=== PATIENT | female | born 1945 | race Two or more races ===

== ENCOUNTER → 2021-04-12 08:00 | Outpatient (CLI) | payer OTHER ==
[~2021-04-12] VITALS: Ht 144.8 cm; Wt 79.4 kg
[~2021-04-12 08:00] MED LIST: AMBIEN10 MG PO; ARICEPT10 MG PO; ARNUITY ELLIP200 MCG IH; ATENOLOL25 MG PO; AVAPRO300 MG PO; CARDURA8 MG PO; CIPRO750 MG PO; CLONAZEPAM1 MG PO; Colace 100MG PO; DOCUSATE SODIU100 MG PO; GABAPENTIN400 MG PO; GLUCOPHAGE XR500 MG PO; LANTUS SOLOSTAR3 ML SQ; LIPIT PO; MIRAPEX0.125 MG PO; NEURONTIN PO; PERCOCET 5/321 UDTAB PO; PERCOCET 5/3251 TAB PO; SYNTH PO; ZOLOFT50 MG PO
== END | disposition home or self-care (01) ==
LOC: LAB 08:00 → SURH 04-17 10:45 → EDSTATUS 04-17 10:45 → SURH 04-17 13:47
PROVIDERS: ATTEND Orthopaedic Surgery Orthopaedic Surgery of the Spine
DX: M50.01 Cervical disc disorder with myelopathy, high cervical region (principal); U07.1 COVID-19; Z03.818 Encounter for observation for suspected exposure to other biological agents ruled out; Z20.822 Contact with and (suspected) exposure to COVID-19

== ENCOUNTER 2021-08-21 10:15 | Inpatient (IN) | payer OTHER ==
[~2021-08-21] VITALS: Ht 152.4 cm; Wt 79.8 kg
[2021-08-24] MEDS ORDERED: SYNTHROID50 MCG (10:40)
[2021-08-24] MEDS ORDERED: ROSUVASTATIN CA20 MG (10:40)
[2021-08-24] MEDS ORDERED: FLUOROMETHOLONE5 ML (10:41)
[2021-08-24] MEDS ORDERED: CANDESARTAN CIL32 MG (10:41)
[2021-08-24] MEDS ORDERED: ZANAFLEX2 MG (10:41)
[2021-08-24] MEDS ORDERED: OPTIVE EYE DROP15 ML (10:41)
[2021-08-24] MEDS ORDERED: CLOPIDOGREL BIS75 MG (10:41)
[2021-08-24] MEDS ORDERED: HYDROCHLOROTH12.5 MG (10:41)
[2021-08-24] MEDS ORDERED: NIFEDIPINE ER30 M1 (10:42)
[2021-08-24] MEDS ORDERED: MAXIMUM D3325 MCG (10:42)
[2021-08-24] MEDS ORDERED: MONTELUKAST SOD10 MG (10:42)
[2021-08-24] MEDS ORDERED: BANOPHEN25 MG (10:42)
[2021-08-24] MEDS ORDERED: ARTHRITIS PAIN650 MG (10:42)
[2021-08-24] MEDS ORDERED: FLONASE16 GM (10:42)
[2021-08-24] MEDS ORDERED: LANSOPRAZOLE30 MG (10:42)
[2021-08-24] MEDS ORDERED: CELECOXIB200 MG (10:43)
[2021-08-24] MEDS ORDERED: CITALOPRAM HBR20 MG (10:44)
[2021-08-24] MEDS ORDERED: TRULICITY0.75 MG/0. (10:45)
== END 2021-08-25 12:50 | disposition home or self-care (01) | DRG 473 ==
LOC: SURG 08-24 06:00 → O/R 08-24 06:00 → SURH 08-24 06:30 → SURG 08-24 10:51
PROVIDERS: ADMIT Orthopaedic Surgery Orthopaedic Surgery of the Spine; ATTEND Orthopaedic Surgery Orthopaedic Surgery of the Spine
PROC: 07DS0ZZ Extraction of Vertebral Bone Marrow, Open Approach (ICD-10-PCS; 2021-08-24)
PROC: 0RG10A0 Fusion of Cervical Vertebral Joint with Interbody Fusion Device, Anterior Approach, Anterior Column, Open Approach (ICD-10-PCS; principal; 2021-08-24 06:30)
DX: M50.01 Cervical disc disorder with myelopathy, high cervical region (principal)